=== PATIENT | female | born 1965 | race Caucasian/White ===

== ENCOUNTER 2022-06-01 18:35 | Emergency (ER) | payer OTHER, SELFPAY ==
--- NOTE | ~2022-06-01 | XR_ITS ---
EXAM: XR abdomen obstructive series DATE: 06/01/2022 19:25 HISTORY: constipation ,vomiting lower abdominal cramping . COMPARISON: None available. FINDINGS: Left basilar scar/atelectasis. Cholecystectomy clips. Normal bowel gas pattern. No organom egaly. Pelvic phleboliths. Degenerative changes in the spine. IMPRESSION: No radiographic evidence of obstruction or ileus. Reviewed, dictated and finalized at location K.
[2022-06-01 18:48] VITALS: BP 134/70; PULSE 92; RESP 18; TEMP 37.2; O2SAT 97
[2022-06-01] MEDS: ONDANSETRON HCL ODT 4 MG TABLET 8 MG SUBLINGUAL (19:15)
--- NOTE | 2022-06-01 20:03 | ED.NAVMDI ---
HPI - Nausea/Vomiting/Diarrhea General Chief complaint: Nausea/Vomiting/Diarrhea Stated complaint: Nausea,Vomiting,Constipation Time Seen by Provider: 06/01/22 18:56 Source: patient and family Mode of arrival: ambulatory Limitations: no limitations History of Present Illness HPI Narrative: Patient presents today complaining of nausea, vomiting, constipation, lower abdominal cramping. Symptoms began yesterday afternoon. Reports 5 episodes of vomiting today, but none since 1500 this afternoon. Reports nausea worsens when she sits up and improves when she lays flat. Denies fever or any URI symptoms. Denies urinary symptoms. She has been trying MiraLax last night and magnesium citrate today. States she vomited after taking the magnesium citrate. She did have a small bowel movement consisting of hard round stools after the magnesium citrate. Her last normal bowel movement was 2 days ago. Related Data Allergies Allergy/AdvReac Type Severity Reaction Status Date / Time rimantadine AdvReac Severe hallucinati Verified 06/01/22 18:54 ons gluten AdvReac Intermediate HEART BURN Verified 06/01/22 18:54 oseltamivir AdvReac Intermediate AX Verified 06/01/22 18:54 ANTIVIRALS RIMANTADINE HCL (Generic AdvReac Intermediate Y Uncoded 06/01/22 18:54 Allergy) Review of Systems Review of Systems: CONSTITUTIONAL: Denies body aches, fever, chills, or sweats. EYES: Denies visual changes, redness, or discharge. ENT: Denies rhinorrhea, congestion, sore throat, or otalgia. CARDIOVASCULAR: Denies chest pain, palpitations, or edema. RESPIRATORY: Denies cough or dyspnea. GASTROINTESTINAL:+ nausea, vomiting, abdominal cramping, constipation GENITOURINARY: Denies dysuria or hematuria. SKIN: Denies rash, itching, or wounds. MUSCULOSKELETAL: Denies back pain, joint pain, or myalgia. NEUROLOGIC: Denies headache, numbness, tingling, or weakness. PSYCH: Denies depression or anxiety. [facility] Family History Family History Father Family history of lymphoma Grandparent Family history of malignant neoplasm of breast in first degree relative Social History Social History Smoking status: Never smoker Alcohol intake: current Comments At time of signature, I have reviewed and agree with nursing past medical, surgical, social and family history unless otherwise noted. Please see nursing chart for further information. There is no relevant family history pertinent to the presenting complaint Exam Narrative: GENERAL: Mildly ill-appearing, well-nourished. HEAD: Normocephalic, atraumatic. EYES: EOMI. No redness or drainage. Conjunctivae normal. ENT: Mucous membranes pink and tacky. Nares clear. No rhinorrhea. TMs normal bilaterally. Throat normal. Uvula midline. NECK: Normal AROM. Supple. No lymphadenopathy. CHEST: No respiratory distress. Clear to auscultation. HEART: Regular rate and rhythm. No murmur appreciated. Normal peripheral pulses. ABDOMEN: Soft, nondistended, normal active bowel sounds. +Lower abdominal tenderness without rebound or guarding. MUSCULOSKELETAL: No bony tenderness. EXTREMITIES: Normal range of motion. No edema. SKIN: Warm, dry, no rash. Capillary refill normal. Normal skin turgor. NEURO: No focal deficits. Alert and oriented x3. Gait steady. Course Course Emergency Course: Patient has been drinking water since her arrival. X-ray negative for obstruction. Patient has been treated with Zofran for nausea. Offered transfer to the ER for further evaluation. Patient declined. Will discharge her home with prescription for Zofran for nausea and Bentyl for abdominal cramping. Understands to go to the ER if symptoms worsen. Level of Care: Express Care Visit Vital Signs Vital signs: Vital Signs Temperature 98.9 F 06/01/22 18:48 Pulse Rate 92 06/01/22 18:48 Respiratory Rate 18 11
== END 2022-06-01 20:16 | disposition home or self-care (01) ==
PROVIDERS: Emergency Provider Nurse Practitioner; PCP Emergency Medicine
DX: R11.2 Nausea with vomiting, unspecified (principal)
CPT/HCPCS: 74019; 99213; A9270; G0463

== ENCOUNTER 2023-10-06 09:05 | Emergency (ER) | payer OTHER, SELFPAY ==
--- NOTE | ~2023-10-06 | XR_ITS ---
EXAMINATION: XR ankle RT min 3V DATE: 10/06/2023 09:32 INDICATION: Lateral right ankle pain and swelling post twisting injury TECHNIQUE: Anteroposterior, oblique, mortise, and lateral views of the right ankle were obtained. COMPARISON: None. FINDINGS: Alignment is normal. No acute fracture. Heterotopic ossicles along the tip of the medial malleolus li jesus sequela of chronic medial ankle sprain. Mild osteoarthritis at the first metatarsophalangeal ade nt. The remaining profiled joint spaces appear relatively preserved. Moderate-sized plantar calcaneal spur. Prominent soft tissue swelling at the anterior and lateral ankle. No joint effusion. IMPRESSION: 1. Soft tissue swelling but without ankle joint effusion or acute osseous abnormality. Reviewed, dictated and finalized at location B. IMPRESSION: 1. Soft tissue swelling but without ankle joint effusion or acute osseous abnor mality.
[2023-10-06 09:16] VITALS: BP 127/88; PULSE 74; RESP 16; TEMP 36.9; O2SAT 99
--- NOTE | 2023-10-06 09:16 | ED.LOWEXIN ---
HPI - Extremity Injury (Lower) General Chief Complaint: Extremity Injury, Lower Stated Complaint: Right Ankle Injury Time Seen by Provider: 10/06/23 09:06 Source: patient Mode of arrival: ambulatory Limitations: no limitations History of Present Illness HPI Narrative: Terra is a 57-year-old female patient presenting to the clinic today with complaints of right ankle pain/injury. She reports she tripped and rolled her ankle yesterday over a flatbed tailgate. She is walking with a cane today. Complaining of numbness and pain to the lateral left ankle with mild swelling Related Data Allergies Allergy/AdvReac Type Severity Reaction Status Date / Time rimantadine AdvReac Severe hallucinati Verified 01/17/23 08:35 ons gluten AdvReac Intermediate HEART BURN Verified 01/17/23 08:35 oseltamivir AdvReac Intermediate AX Verified 01/17/23 08:35 ANTIVIRALS RIMANTADINE HCL (Generic AdvReac Intermediate Y Uncoded 01/17/23 08:35 Allergy) Review of Systems Review of Systems: Pertinent positives per HPI. Patient denies any fever, chills, rash, headache, visual changes, dizziness, cough, runny nose, sore throat, shortness of breath, chest pain, palpitations, nausea, vomiting, diarrhea, constipation, abdominal pain, or any urinary issues. PMF Family History Family History Father Family history of lymphoma Grandparent Family history of malignant neoplasm of breast in first degree relative Social History Social History Smoking status: Never smoker Alcohol intake: current Lack of Transportation: No Lack of Food: Never True Current Housing: I Have Housing Concerned About Future Housing: No Difficulty Paying Gas/Electric Bills: No Difficulty Paying for Meds: No Currently Unemployed: No Education: Master's Degree or Higher Difficulty w/ Childcare or Family Care: No Comments At the time of my signature, I reviewed and agree with the nursing past medical, surgical, social, and family history. There is no relevant family history pertinent to the patient complaint. Exam Narrative: General: Well-developed, well nourished, in no apparent distress Head: Normocephalic, atraumatic. Cardio: Regular rate and rhythm, s1 and s2 normal, no murmur appreciated. Resp: Clear to auscultation bilaterally, no rhonchi, rales, wheezing or rubs. Musculoskeletal: No deformity, mild swelling to the left lateral ankle, tender to palpation over the lateral ankle, grossly normal range of motion, discomfort with valgus/varus testing, normal dorsal flexion and plantar flexion against resistance, muscle strength strong and equal, peripheral pulse strong, no edema, no cyanosis, normal gait and station Course Course Emergency Course: Portions of this record may have been created with voice recognition software. Level of Care: Express Care Visit Vital Signs Vital signs: Vital signs reviewed MDM - Extremity Injury (Lower) MDM Narrative Medical decision making narrative: At the time of visit patient is resting comfortably on the exam table. Patient appears to be nontoxic. Diagnostics: X-rays negative for any sign of fracture or malalignment. Plan: I suspect patient has a left ankle sprain. David wrap was applied. supportive measures were discussed with the patient and they voiced understanding discharge instructions and agrees to treatment plan. Return precautions reviewed Differential Diagnosis Differential diagnosis: Likely ankle sprain and strain and ankle fracture Discharge Plan Discharge Clinical Impression: Left ankle sprain Qualifiers: Encounter type: initial encounter Involved ligament of ankle: calcaneofibular ligament Qualified Code(s): S93.412A - Sprain of calcaneofibular ligament of left ankle, initial encounter Patient Disposition: Home, Self-Care Condition: Stable Instruc
== END 2023-10-06 09:53 | disposition home or self-care (01) ==
PROVIDERS: Emergency Provider Nurse Practitioner Family; PCP Emergency Medicine
DX: S93.402A Sprain of unspecified ligament of left ankle, initial encounter (principal); W18.49XA Other slipping, tripping and stumbling without falling, initial encounter; E78.00 Pure hypercholesterolemia, unspecified
CPT/HCPCS: 73610; 99213; G0463

== ENCOUNTER 2023-12-26 14:07 | Outpatient (CLI) | payer OTHER, SELFPAY ==
--- NOTE | ~2023-12-26 | US_ITS ---
EXAMINATION: US thyroid DATE: 12/26/2023 14:44 INDICATION: Other specified disorders of thyroid. TECHNIQUE: Multiple ultrasound images of the thyroid were obtained. COMPARISON: None. FINDINGS: The right thyroid lobe measures 4.2 x 1.5 x 1.5 cm. The left thyroid lobe measures 3.9 x 1.0 x 1.4 c m. In the left thyroid lobe, there is a 6 mm solid, hypoechoic, wider than tall nodule with smooth m argins without echogenic foci (TI-RADS TR4). IMPRESSION: 1. Small thyroid nodule, likely not clinically significant. No follow-up is needed. Reviewed, dictated and finalized at location A. IMPRESSION: 1. Small thyroid nodule, likely not clinically significant. No follow-up is nee ded.
== END 2023-12-26 14:08 ==
LOC: MICIMG 14:09
PROVIDERS: PCP Emergency Medicine; Visit Provider Emergency Medicine
DX: E07.89 Other specified disorders of thyroid (principal)
CPT/HCPCS: 76536

== ENCOUNTER 2024-01-20 14:33 | Outpatient (CLI) | payer OTHER, SELFPAY ==
--- NOTE | ~2024-01-20 | MM_ITS ---
EXAMINATION: MM screening alejandro BI w jose HISTORY: Screening mammogram TECHNIQUE: Craniocaudal and mediolateral oblique 3-D tomosynthesis images were obtained and synthetic 2-D images were generated. CAD analysis was submitted and interpreted. COMPARISON: 03/22/2015 BREAST PARENCHYMAL COMPOSITION:Not Dense. There are scattered areas of fibroglandular density. FINDINGS: Stable intramammary lymph nodes the upper, outer left breast. No suspicious mass, calcifica tion, or architectural distortion are identified in either breast to suggest malignancy. There has be en no suspicious interval change. IMPRESSION: No mammographic evidence of malignancy. Recommend routine screening mammography in one year. BI-RADS Category 2: Benign finding(s). Reviewed, dictated and finalized at location .
== END 2024-01-20 14:34 | disposition home or self-care (01) ==
PROVIDERS: PCP Emergency Medicine; Visit Provider Emergency Medicine
DX: Z12.31 Encounter for screening mammogram for malignant neoplasm of breast (principal)
CPT/HCPCS: 77063; 77067

== ENCOUNTER 2024-02-26 10:36 | Outpatient (CLI) | payer OTHER, SELFPAY ==
--- NOTE | ~2024-02-26 | XR_ITS ---
XR knee LT min 4V Ordering provider: Primo Clements MD History: . M17.0 - Bilateral primary osteoarthritis of knee . Comparison: August 02, 2015 FINDINGS: BONES: No acute fracture or dislocation. JOINT SPACES: Normal. SOFT TISSUES: Normal. IMPRESSION: No acute osseous abnormality left knee. Reviewed, dictated and finalized at location A.
--- NOTE | ~2024-02-26 | US_ITS ---
EXAMINATION: US venous doppler [facility] DATE: 02/26/2024 11:34 INDICATION: Lower limb pain. TECHNIQUE: Grayscale ultrasound images without and with compression and Doppler ultrasound images of the bilateral lower extremity veins were obtained. COMPARISON: None. FINDINGS: The visualized portions of right common femoral vein, profunda (deep) femoral vein, femoral vein, pop liteal vein, peroneal veins, posterior tibial veins, and greater saphenous vein outflow are patent. The visualized portions of left common femoral vein, profunda femoral vein, femoral vein, popliteal v ein, peroneal veins, posterior tibial veins, and greater saphenous vein outflow are patent. IMPRESSION: 1. No deep venous thrombosis. Reviewed, dictated and finalized at location A.
--- NOTE | ~2024-02-26 | XR_ITS ---
XR knee RT min 4V Ordering provider: Primo Clements MD History: . M17.0 - Bilateral primary osteoarthritis of knee . Comparison: November 12, 2010 FINDINGS: BONES: No acute fracture or dislocation. JOINT SPACES: Normal. SOFT TISSUES: Normal. IMPRESSION: No acute osseous abnormality right knee. Reviewed, dictated and finalized at location A.
== END 2024-02-26 10:37 ==
PROVIDERS: PCP Emergency Medicine; Visit Provider Emergency Medicine
DX: M17.0 Bilateral primary osteoarthritis of knee (principal); M79.606 Pain in leg, unspecified; Z83.2 Family history of diseases of the blood and blood-forming organs and certain disorders involving the immune mechanism
CPT/HCPCS: 73564; 93970

== ENCOUNTER 2024-07-06 19:00 | Emergency (ER) | payer OTHER, SELFPAY ==
--- NOTE | ~2024-07-06 | XR_ITS ---
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 RESULT: Lines, tubes, and devices: Cholecystectomy clips. Lungs and pleura: Ill-defined somewhat lobular appearing opacity in the right upper lung. Cardiomediastinal silhouette: Unremarkable. Calcified left inferior hilar granuloma or node. Other: No acute osseous or upper abdominal finding. IMPRESSION: Ill-defined right upper lung opacity, may represent a focus of infection. Recommend radiographic foll ow-up to ensure resolution. Reviewed, dictated and finalized at location K. OGEN BRAZE FURNACE OPERATOR IMPRESSION: Ill-defined right upper lung opacity, may represent a focus of infection. Recom mend radiographic follow-up to ensure resolution.
[2024-07-06 19:11] VITALS: BP 142/84; PULSE 90; RESP 16; TEMP 36.7; O2SAT 100
--- NOTE | 2024-07-06 19:35 | ED.URI ---
HPI - URI/Sore Throat General Chief Complaint: Upper Respiratory Infection Stated Complaint: COUGH/SOB Time Seen by Provider: 07/06/24 19:25 Source: patient, family, RN notes reviewed and old records reviewed Mode of arrival: ambulatory Limitations: no limitations History of Present Illness HPI Narrative: 58 year old female accompanied by spouse presents to express care with complaints of hacking cough, sinus congestion and drainage and also some shortness of breath with cough and exertion at times for one week duration. Patient reports that she has taken some OTC cold and cough medications and has used her husbands Symbicort inhaler a few times but symptoms have not resolved. Patient reports that she has ot been able to sleep due to cough being so bad and has missed work due to her symptoms. Patient reports that she has not had any known fevers. MD elicited complaint: cough, rhinorrhea, nasal congestion and other (shortness of breath) Onset (ago): week(s) (1) Severity: moderate Able to tolerate fluids by mouth: Yes Treatments prior to arrival: cold medicine and other (used 's Symbicort inhaler) Related Data Home Medications ?Medication ?Instructions ?Recorded ?Confirmed ?Last Taken ?Type calcium 260 mg (phos,tribasic)-D3 tablet PO 12/25/23 02/26/24 Unknown History 25 mcg-herbal 50 mg chewable tablet (Alive Calcium-Vitamin D3) melatonin 10 mg capsule 10 mg PO QHS 12/25/23 02/26/24 Unknown History Allergies Allergy/AdvReac Type Severity Reaction Status Date / Time rimantadine AdvReac Severe hallucinati Verified 02/26/24 09:01 ons gluten AdvReac Intermediate HEART BURN Verified 02/26/24 09:01 oseltamivir AdvReac Intermediate AX Verified 02/26/24 09:01 ANTIVIRALS RIMANTADINE HCL (Generic AdvReac Intermediate Y Uncoded 02/26/24 09:01 Allergy) Review of Systems Review of Systems: CONSTITUTIONAL: Reports malaise, no chills, sweats, or fever. EYES: Denies visual changes, redness, or discharge. ENT: Reports rhinorrhea, congestion, sinus pain, no otalgia and no sore throat. CARDIOVASCULAR: Denies chest pain, palpitations, or edema. RESPIRATORY: Reports cough.? Denies present dyspnea,hacking cough GASTROINTESTINAL: Denies abdominal pain, nausea, vomiting, diarrhea SKIN: Denies rash or itching. MUSCULOSKELETAL: Denies myalgia. NEUROLOGIC: Denies headache. All systems reviewed & are unremarkable except as noted in HPI and below PMFSH Past Medical History Medical History (Updated 07/10/24 @ 10:21 by Mariella Mcmullen NP) Celiac disease Hyperlipidemia Surgical History Surgical History (Updated 07/06/24 @ 20:52 by Mariella Mcmullen NP) History of tonsillectomy Hx of cholecystectomy Family History Family History Father Family history of lymphoma Grandparent Family history of malignant neoplasm of breast in first degree relative Social History Social History Smoking status: Never smoker Alcohol intake: current Lack of Transportation: No Lack of Food: Never True Current Housing: I Have Housing Concerned About Future Housing: No Difficulty Paying Gas/Electric Bills: No Difficulty Paying for Meds: No Currently Unemployed: No Education: Master's Degree or Higher Difficulty w/ Childcare or Family Care: No Comments At time of signature, agree with nursing past medical, surgical, social and family history. There is no relevant family history pertinent to the presenting complaint Exam Narrative: GENERAL: ill-appearing, well-nourished, and in no acute distress. HEAD: Normocephalic EYES: PERRLA, conjunctivae clear ENT: Nares clear, turbinates edematous and erythematous, clear discharge. Mucous membranes moist. TM pearly kelly with dull light reflex bilaterally; no tragal tenderness. Oropharynx erythematous without lesions. Tonsils not enlarged and without exudate, no drooling, no hoarseness, no trismus, uvula midline. NECK: Supple. No lymphadenopathy CHEST: rhonchi right upper lung, breath sounds equal. No wheezing, positive for rhonchi, rales, or stridor. No respiratory distress, speaks in full sentences, acute coughSAO2 100% on room air HEART: Regular rate and rhythm. No murmur heard. SKIN: Warm, dry, no rash. NEURO: Alert and oriented x3. PSYCH: Normal mood and affect Course Course Emergency Course: Patient is aware of diagnosis, understands and agrees to treatment plan.? Anticipatory guidance given.? Patient agrees to follow-up as directed and is aware of reasons to seek care at the emergency department. Portions of this record may have been created with voice recognition software Level of Care: Express Care Visit Vital Signs Vital signs: Vital Signs Temperature 36.7 C 07/06/24 19:11 Pulse Rate 90 07/06/24 19:11 Respiratory Rate 16 07/06/24 19:11 Blood Pressure 142/84 H 07/06/24 19:11 Pulse Oximetry 100 07/06/24 19:11 Temperature 36.7 C 07/06/24 19:11 Pulse Rate 90 07/06/24 19:11 Respiratory Rate 16 07/06/24 19:11 Blood Pressure 142/84 H 07/06/24 19:11 Pulse Oximetry 100 07/06/24 19:11 Oxygen Delivery Room Air 07/06/24 19:15 Reviewed MDM - URI/Sore Throat MDM Narrative Medical decision making narrative: Differential diagnosis considered: Arcos virus, strep pharyngitis, allergic rhinitis, upper respiratory tract infection, sinusitis, rhinosinusitis, nasopharyngitis. viral pharyngitis, otitis media, otitis externa, pneumonia, bronchitis, viral cough syndrome, viral syndrome, and influenza.? Exam findings show no acute concerns or changes; patient is non-toxic appearing and is in no distress.? Patient is appropriate for outpatient treatment and follow-up. Differential Diagnosis Differential diagnosis: Likely upper respiratory infection, sinusitis, viral infection and other (acute cough, pneumonia) Medical Records Attestation: I reviewed the patient's medical records. Lab Data Attestation: I reviewed the patient's lab results. Imaging Data Attestation: I personally reviewed and interpreted this imaging study as follows: My impression: right upper lob opacity Radiologist's impression: [facility] [address] [facility] [place][Note 2] [place] [address] XRay Report Signed Patient: Terra Neely : 1965 MR#: [id number] Age: 58 Acct:[id number] Loc: [id number] ADM Date: 07/06/24Attending Dr: Ordering Physician: Mariella Mcmullen APRN Date of Service: 07/06/24 Procedure(s): XR chest 2V Accession Number(s): [id number] cc: Primo Clements MD; Mariella Mcmullen APRN~ EXAMINATION: XR chest 2V Exam Date/Time: 07/06/2024 19:31 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 RESULT: Lines, tubes, and devices: Cholecystectomy clips. Lungs and pleura: Ill-defined somewhat lobular appearing opacity in the right upper lung. Cardiomediastinal silhouette: Unremarkable. Calcified left inferior hilar granuloma or node. Other: No acute osseous or upper abdominal finding. IMPRESSION: Ill-defined right upper lung opacity, may represent a focus of infection. Recommend radiographic follow-up to ensure resolution. Reviewed, dictated and finalized at location K. E GATE ASSEMBLER Dictated By: Simone Garber MD 07/06/242012 Signed By: <Electronically signed by Simone Garber MD in OV> Critical Care Time Critical Care Time Critical Care Time: No Discharge Plan Discharge Clinical Impression: Acute cough Right upper lobe pneumonia Qualifiers: Pneumonia type: due to unspecified organism Qualified Code(s): J18.9 - Pneumonia, unspecified organism Patient Disposition: Home, Self-Care Condition: Stable Instructions: Antibiotic Form, Pneumonia (ED) Additional Instructions: Increase fluids especially juices and water [id number] cough and cold medicine of your choice for your symptoms Prescription cough medicine as directed--caution drowsiness and no driving or alcohol Continue your inhaler/nebulizer as directed Steroids as directed--take with food heat to the face 20-30 minutes 4-6 times a day for pain Salt water gargles, throat lozenges or throat sprays as desired Antibiotic as directed--finished the medication Tylenol or ibuprofen for any fever pain Zyrtec Claritin or Ritika daily for sinus congestion and drainage If your symptoms persist, change or worsen significantly before you can contact your personal physician then please, without delay, go to the emergency department for further evaluation. Follow-up with PCP in 7-10 days or sooner if needed Follow up with PCP soon in regards to your blood pressure which is elevated above threshold for referral. Blood pressure above 120/80 may indicate pre-hypertension. 142/84 Patient Language: Kiswahili Prescriptions: New azithromycin 500 mg tablet 500 mg PO DAILY 5 Days Qty: 5 0RF albuterol sulfate 90 mcg/actuation HFA aerosol inhaler 2 puff inhalation QID PRN (Reason: shortness of breath or wheezing) Qty: 6.7 0RF prednisone 20 mg tablet 20 mg PO BID Qty: 10 0RF Rx Instructions: start in the am codeine-guaifenesin 10-100 mg/5 mL liquid 10 ml PO Q6H PRN (Reason: cold symptoms) Qty: 120 0RF No Action Alive Calcium-Vitamin D3 260 mg calcium- 25 mcg-50 mg tablet,chewable PO melatonin 10 mg capsule 10 mg PO QHS rosuvastatin 5 mg tablet See Rx Instructions .ROUTE .COMPLEX Qty: 45 3RF Dose Instruction: TAKE 1 TABLET EVERY OTHER DAY Rx Instructions: TAKE 1 TABLET EVERY OTHER DAY Follow-up/Referrals: Primo Clements MD [Primary Care Provider] - Time of Disposition: 20:38 Quality Tenmile Coma Scale Eyes: Open Verbal: Oriented and Alert Motor: Follows Commands George Coma Total Score: 15
== END 2024-07-06 20:40 | disposition home or self-care (01) ==
PROVIDERS: Emergency Provider Registered Nurse; PCP Emergency Medicine
DX: R05.1 Acute cough (principal); J18.9 Pneumonia, unspecified organism; K90.0 Celiac disease; E78.5 Hyperlipidemia, unspecified
CPT/HCPCS: 71046; 99213; G0463

== ENCOUNTER 2025-01-05 13:12 | Emergency (ER) | payer OTHER, SELFPAY ==
[2025-01-05 13:15] VITALS: BP 153/85; PULSE 69; RESP 20; TEMP 36.3; O2SAT 100
--- NOTE | 2025-01-05 14:30 | ED_ITS ---
HPI - General Adult General Chief complaint: Recheck/Abnormal Lab/Rx <AXEL Torres Last Filed: 01/05/25 14:42> Stated complaint: TICK BITE ILLNESS <AXEL Torres Last Filed: 01/05/25 14:42> Time Seen by Provider: 01/05/25 14:30 <AXEL Torres Last Filed: 01/05/25 14:42> Focused HPI: Patient is a 59 y/o female who presents to the ED with c/o dizziness, tick exposure. Patient reports she was on vacation camping in [place] last week. Was bit by a lone star tick on her L hip 1 week ago. removed it, but unsure if he got all of the tick out. Became having some swelling/redness around tick bite, aching in her L hip and knees. Sent her PCP a photo of the tania, was told to go to an UC. Went to an UC on Friday and was Rx'd Doxycycline and given shot of Ceftriaxone 1gm. States sx's improved yesterday, but woke up this morning with worsening redness and pain of L hip, neck pain, lightheadedness, general malaise, nausea. Denies fevers. Denies vomiting. GENERAL: Well-appearing, well-nourished, and in no acute distress. HEAD: Normocephalic, atraumatic. CHEST: Clear to auscultation. ?No respiratory distress. HEART: Regular rate and rhythm.? SKIN: Scabbed lesion to L anterior proximal thigh with bruising surrounding. Very slight erythema. No significant warmth. No bulls-eye rash. No drainage. No significant focal TTP. NEURO: ?Alert and oriented x3. Patient screened in triage and initial orders placed.? ?Additional care and disposition to be based upon?diagnostic testing and treatment. <AXEL Torres Last Filed: 01/05/25 14:42> Source: patient <AXEL Torres Last Filed: 01/05/25 14:42> Mode of arrival: ambulatory <AXEL Torres Last Filed: 01/05/25 14:42> Limitations: no limitations <Jaci Diego PA-C - Last Filed: 01/05/25 14:42> History of Present Illness HPI narrative: Agree with the HPI above <Benny Luis MD - Last Filed: 01/05/25 16:50> Related Data Home medications: Home Medications ?Medication ?Instructions ?Recorded ?Confirmed ?Last Taken ?Type calcium 260 mg (phos,tribasic)-D3 tablet PO 12/25/23 11/05/24 Unknown History 25 mcg-herbal 50 mg chewable tablet (Alive Calcium-Vitamin D3) melatonin 10 mg capsule 10 mg PO QHS 12/25/23 11/05/24 Unknown History <Jaci Diego PA-C - Last Filed: 01/05/25 14:42> Allergies/adverse reactions: Allergies Allergy/AdvReac Type Severity Reaction Status Date / Time rimantadine AdvReac Severe hallucinati Verified 01/05/25 13:20 ons gluten AdvReac Intermediate HEART BURN Verified 01/05/25 13:20 oseltamivir AdvReac Intermediate AX Verified 01/05/25 13:20 ANTIVIRALS RIMANTADINE HCL (Generic AdvReac Intermediate Y Uncoded 01/05/25 13:20 Allergy) <Jaci Diego PA-C - Last Filed: 01/05/25 14:42> Review of Systems 2 Review of Systems: As reviewed above in HPI <Benny Luis MD - Last Filed: 01/05/25 16:50> [facility] Past Medical History Medical History: Medical History (Updated 01/05/25 @ 16:49 by Benny Luis MD) Family history of hypothyroidism Family history of factor V Leiden mutation Tear of meniscus of left knee Lower extremity pain Screening for breast cancer Obesity Pure hypercholesterolemia Celiac disease Hyperlipidemia <Jaci Diego PA-C - Last Filed: 01/05/25 14:42> Surgical History Surgical History: Surgical History History of tonsillectomy Hx of cholecystectomy <Jaci Diego PA-C - Last Filed: 01/05/25 14:42> Family History Family History: Family History Father Family history of lymphoma Grandparent Family history of malignant neoplasm of breast in first degree relative <Jaci Diego PA-C - Last Filed: 01/05/25 14:42> Social History Social History: Social History Smoking status: Never smoker Alcohol intake: current Lack of Transportation: No Lack of Food: Never True Current Housing: I Have Housing Concerned About Future Housing: No Difficulty Paying Gas/Electric Bills: No Difficulty Paying for Meds: No Currently Unemployed: No Education: Master's Degree or Higher Difficulty w/ Childcare or Family Care: No <AXEL Torres Last Filed: 01/05/25 14:42> Exam 2 Narrative: GENERAL: Well-appearing, well-nourished, and in no acute distress. HEAD: Normocephalic, atraumatic. CHEST: Clear to auscultation. ?No respiratory distress. HEART: Regular rate and rhythm.? SKIN: Scabbed lesion to L anterior proximal thigh with bruising surrounding. Very slight erythema. No significant warmth. No bulls-eye rash. No drainage. No significant focal TTP. NEURO: ?Alert and oriented x3. <Benny Luis MD - Last Filed: 01/05/25 16:50> Course Vital Signs Vital signs: Vital Signs Temperature 36.3 C L 01/05/25 13:15 Pulse Rate 69 01/05/25 13:15 Respiratory Rate 20 01/05/25 13:15 Blood Pressure 153/85 H 01/05/25 13:15 Pulse Oximetry 100 01/05/25 13:15 Oxygen Delivery Room Air 01/05/25 13:15 Temperature 36.3 C L 01/05/25 13:15 Pulse Rate 75 01/05/25 15:47 Respiratory Rate 16 01/05/25 15:48 Blood Pressure 142/81 H 01/05/25 15:47 Pulse Oximetry 100 01/05/25 15:48 Oxygen Delivery Room Air 01/05/25 13:15 <AXEL Torres Last Filed: 01/05/25 14:42> Vital Signs Temperature 36.3 C L 01/05/25 13:15 Pulse Rate 69 01/05/25 13:15 Respiratory Rate 20 01/05/25 13:15 Blood Pressure 153/85 H 01/05/25 13:15 Pulse Oximetry 100 01/05/25 13:15 Oxygen Delivery Room Air 01/05/25 13:15 Temperature 36.3 C L 01/05/25 13:15 Pulse Rate 75 01/05/25 15:47 Respiratory Rate 16 01/05/25 15:48 Blood Pressure 142/81 H 01/05/25 15:47 Pulse Oximetry 100 01/05/25 15:48 Oxygen Delivery Room Air 01/05/25 13:15 <Benny Luis MD - Last Filed: 01/05/25 16:50> Medical Decision Making MDM Narrative Medical decision making narrative: MSE by JASON in triage. <Jaci Diego PA-C - Last Filed: 01/05/25 14:42> MSE by JASON in triage. 59-year-old female presenting after tick bite to her left anterior hip. She was started on doxycycline has completed 1 day of this. She reported feeling dizzy as well as nauseous and her primary doctor was not able to see her today so she was referred to the emergency department. She has an appointment tomorrow morning for follow-up. Patient states that she was given intramuscular Rocephin at urgent care while she was out of town traveling back. She was started on doxycycline for 14 days and want to make sure she does not have any other complications. She otherwise well-appearing, target lesion that was previously seen and photographed is resolved she just has a scabbed over lesion presently. No fever, hypoxia. Normal vital signs otherwise. Unremarkable examination. Patient does have current prescription for doxycycline for 2 weeks which is appropriate level of care for this type of potential exposure. Discussed this with her but we will obtain laboratory studies an EKG to make sure there is no other complications or findings that need to be attended to. Workup was unrevealing. No leukocytosis or anemia. Normal platelet count. Normal electrolytes. Normal renal and hepatic function panel. EKG unremarkable. No signs of QTC interval prolongation, normal NC interval. No ectopy. No ST segment changes. Patient is safe for discharge with current course of treatment including remaining 2 weeks of doxycycline and she was given return precautions and follow-up instructions. She has a PCP appointment tomorrow. <Benny Luis MD - Last Filed: 01/05/25 16:50> Medical Records Medical records reviewed: Yes I reviewed the external patient's medical records. <Benny Luis MD - Last Filed: 01/05/25 16:50> Vital Signs Vital Signs: Vital Signs Temperature 36.3 C L 01/05/25 13:15 Pulse Rate 69 01/05/25 13:15 Respiratory Rate 20 01/05/25 13:15 Blood Pressure 153/85 H 01/05/25 13:15 Pulse Oximetry 100 01/05/25 13:15 Oxygen Delivery Room Air 01/05/25 13:15 Temperature 36.3 C L 01/05/25 13:15 Pulse Rate 75 01/05/25 15:47 Respiratory Rate 16 01/05/25 15:48 Blood Pressure 142/81 H 01/05/25 15:47 Pulse Oximetry 100 01/05/25 15:48 Oxygen Delivery Room Air 01/05/25 13:15 <Jaci Diego PA-C - Last Filed: 01/05/25 14:42> Vital Signs Temperature 36.3 C L 01/05/25 13:15 Pulse Rate 69 01/05/25 13:15 Respiratory Rate 20 01/05/25 13:15 Blood Pressure 153/85 H 01/05/25 13:15 Pulse Oximetry 100 01/05/25 13:15 Oxygen Delivery Room Air 01/05/25 13:15 Temperature 36.3 C L 01/05/25 13:15 Pulse Rate 75 01/05/25 15:47 Respiratory Rate 16 01/05/25 15:48 Blood Pressure 142/81 H 01/05/25 15:47 Pulse Oximetry 01/05/25 15:48 Oxygen Delivery Room Air 01/05/25 13:15 <Benny Luis MD - Last Filed: 01/05/25 16:50> Lab Data Lab results reviewed: Yes I reviewed the patient's lab results. <Benny Luis MD - Last Filed: 01/05/25 16:50> Result diagrams: 01/05/25 14:43 01/05/25 14:43 <Jaci Diego PA-C - Last Filed: 01/05/25 14:42> Labs: Lab Results 01/05/25 Range/Units 14:43 WBC 6.2 (4.5-10.0) K/mm3 RBC 4.63 (4.2-5.4) M/mm3 Hgb 13.6 (12.0-15.0) g/dL Hct 41.3 (37.0-47.0) % MCV 89.2 (80-100) fl MCH 29.4 (26-34) pg MCHC 32.9 (32-36) g/dl RDW 12.3 (11.5-14.5) % Plt Count 302 (150-375) k/mm3 MPV 8.7 (7.4-10.4) fl Immature Gran % (Auto) 0.3 (0-0.5) % Neut % (Auto) 61.2 (45.5-73.1) % Lymph % (Auto) 29.5 (18.3-44.2) % [place] % (Auto) 5.3 (2.6-8.5) % Eos % (Auto) 3.2 (0-4.4) % Baso % (Auto) 0.5 (0.2-1.2) % Lymph # (Auto) 1.83 (0.9-3.2) K/mm3 [place] # (Auto) 0.3 (0.1-0.6) K/mm3 Eos # (Auto) 0.2 (0-0.3) K/mm3 Baso # (Auto) 0.0 (0.0-0.1) K/mm3 Abs Immat Gran (auto) 0.02 (0.00-0.031) K/mm3 Absolute Neuts (auto) 3.8 (1.3-6.7) K/mm3 Absolute Nucleated RBC 0.000 (0.0-0.012) K/mm3 Nucleated RBC % 0.0 (0.0-0.2) % Sodium 140 (137-145) mmol/L Potassium 4.0 (3.4-5.0) mmol/L Chloride 103 (98-107) mmol/L Carbon Dioxide 28 (22-30) mmol/L Anion Gap 9 (4-12) mmol/L BUN 16 (7-17) mg/dL Creatinine 0.86 (0.7-1.0) mg/dL Estim Creat Clear Calc 72 ml/min Estimated GFR > 60 (59 - ) Glucose 99 (65-110) mg/dL Calcium 9.9 (8.4-10.2) mg/dL Total Bilirubin 0.6 (0.2-1.3) mg/dL AST 35 (14-36) U/L ALT 26 (6-35) U/L Alkaline Phosphatase 92 (38-126) U/L Total Protein 8.3 H (6.3-8.2) g/dL Albumin 4.8 (3.5-5.1) g/dL <Jaci Diego PA-C - Last Filed: 01/05/25 14:42> Lab Results 01/05/25 Range/Units 14:43 WBC 6.2 (4.5-10.0) K/mm3 RBC 4.63 (4.2-5.4) M/mm3 Hgb 13.6 (12.0-15.0) g/dL Hct 41.3 (37.0-47.0) % MCV 89.2 (80-100) fl MCH 29.4 (26-34) pg MCHC 32.9 (32-36) g/dl RDW 12.3 (11.5-14.5) % Plt Count 302 (150-375) k/mm3 MPV 8.7 (7.4-10.4) fl Immature Gran % (Auto) 0.3 (0-0.5) % Neut % (Auto) 61.2 (45.5-73.1) % Lymph % (Auto) 29.5 (18.3-44.2) % Wilbarger % (Auto) 5.3 (2.6-8.5) % Eos % (Auto) 3.2 (0-4.4) % Baso % (Auto) 0.5 (0.2-1.2) % Lymph # (Auto) 1.83 (0.9-3.2) K/mm3 [place]ger # (Auto) 0.3 (0.1-0.6) K/mm3 Eos # (Auto) 0.2 (0-0.3) K/mm3 Baso # (Auto) 0.0 (0.0-0.1) K/mm3 Abs Immat Gran (auto) 0.02 (0.00-0.031) K/mm3 Absolute Neuts (auto) 3.8 (1.3-6.7) K/mm3 Absolute Nucleated RBC 0.000 (0.0-0.012) K/mm3 Nucleated RBC % 0.0 (0.0-0.2) % Sodium 140 (137-145) mmol/L Potassium 4.0 (3.4-5.0) mmol/L Chloride 103 (98-107) mmol/L Carbon Dioxide 28 (22-30) mmol/L Anion Gap 9 (4-12) mmol/L BUN 16 (7-17) mg/dL Creatinine 0.86 (0.7-1.0) mg/dL Estim Creat Clear Calc 72 ml/min Estimated GFR > 60 (59 - ) Glucose 99 (65-110) mg/dL Calcium 9.9 (8.4-10.2) mg/dL Total Bilirubin 0.6 (0.2-1.3) mg/dL AST 35 (14-36) U/L ALT 26 (6-35) U/L Alkaline Phosphatase 92 (38-126) U/L Total Protein 8.3 H (6.3-8.2) g/dL Albumin 4.8 (3.5-5.1) g/dL <Benny Luis MD - Last Filed: 01/05/25 16:50> Discharge Plan Discharge Clinical Impression: Tick bite, At high risk for tick borne illness <Jaci Diego PA-C - Last Filed: 01/05/25 14:42> Patient Disposition: Home <Jaci Diego PA-C - Last Filed: 01/05/25 14:42> Condition: Stable <Jaci Diego PA-C - Last Filed: 01/05/25 14:42> Instructions: Antibiotic Form, Tick Bite (ED) <Jaci Diego PA-C - Last Filed: 01/05/25 14:42> Additional Instructions: Your laboratory studies and EKG are reassuring. You need to complete the entire 2 weeks of doxycycline based on your tick exposure and symptoms. Follow- up with regular primary care provider. Return with any emergent concerns. <Jaci Diego PA-C - Last Filed: 01/05/25 14:42> Patient Language: Upper Sorbian <Jaci Diego PA-C - Last Filed: 01/05/25 14:42> Prescriptions: New ondansetron 4 mg tablet,disintegrating 4 mg PO Q8H PRN (Reason: nausea and vomiting) Qty: 10 0RF No Action Alive Calcium-Vitamin D3 260 mg calcium- 25 mcg-50 mg tablet,chewable PO melatonin 10 mg capsule 10 mg PO QHS rosuvastatin 5 mg tablet See Rx Instructions .ROUTE .COMPLEX Qty: 45 3RF Dose Instruction: TAKE 1 TABLET EVERY OTHER DAY Rx Instructions: TAKE 1 TABLET EVERY OTHER DAY <Jaci Diego PA-C - Last Filed: 01/05/25 14:42> Follow-up/Referrals: Jany Oscar APRN [Primary Care Provider] - <Jaci Diego PA-C - Last Filed: 01/05/25 14:42> Time of Disposition: 16:50 <Jaci Diego PA-C - Last Filed: 01/05/25 14:42> 16:50 <Benny Luis MD - Last Filed: 01/05/25 16:50>
--- NOTE | 2025-01-05 14:35 | ECG_ITS ---
Test Date: 2025-01-05 14:39:34 Measurements Intervals [place] Rate: 67 P: 3 WI: 140 QRS: 7 QRSD: 92 T: 8 QT: 411 QTc: 434 Interpretive Statements SINUS RHYTHM CONSIDER INFERIOR INFARCT, AGE INDETERMINATE ABNORMAL ECG No previous ECG available for comparison Electronically Signed On 01-05-2025 15:20:20 CDT by Eugene Cr D.O.
[2025-01-05] MEDS: ONDANSETRON HCL ODT 4 MG TABLET PO (14:49)
[2025-01-05 14:52] LABS: Basophils Percent Auto 0.5 % (0.2-1.2); Eosinophils Absolute Auto 0.2 K/mm3 (0-0.3); Eosinophils Percent Auto 3.2 % (0-4.4); Hematocrit 41.3 % (37.0-47.0); Hemoglobin 13.6 g/dL (12.0-15.0); Immature Granulocyte Absolute 0.02 K/mm3 (0.00-0.031); Immature Granulocyte Percent A 0.3 % (0-0.5); Lymphocytes Absolute Auto 1.83 K/mm3 (0.9-3.2); Lymphocytes Percent Auto 29.5 % (18.3-44.2); Mean Corpuscular HGB Conc 32.9 g/dl (32-36); Mean Corpuscular Hemoglobin 29.4 pg (26-34); Mean Corpuscular Volume 89.2 fl (80-100); Mean Platelet Volume 8.7 fl (7.4-10.4); Monocytes Absolute Auto 0.3 K/mm3 (0.1-0.6); Monocytes Percent Auto 5.3 % (2.6-8.5); Neutrophils Absolute Auto 3.8 K/mm3 (1.3-6.7); Neutrophils Percent Auto 61.2 % (45.5-73.1); Platelet Count Result 302 k/mm3 (150-375); Red Blood Count 4.63 M/mm3 (4.2-5.4); Red Cell Distribution Width 12.3 % (11.5-14.5); White Blood Count 6.2 K/mm3 (4.5-10.0)
[2025-01-05 15:17] LABS: Alanine Aminotransferase 26 U/L (6-35); Albumin Level 4.8 g/dL (3.5-5.1); Alkaline Phosphatase 92 U/L (38-126); Anion Gap 9 mmol/L (4-12); Aspartate Amino Transferase 35 U/L (14-36); Bilirubin,Total 0.6 mg/dL (0.2-1.3); Blood Urea Nitrogen 16 mg/dL (7-17); Calcium 9.9 mg/dL (8.4-10.2); Carbon Dioxide 28 mmol/L (22-30); Chloride 103 mmol/L (98-107); Estimated CRCL calculation 72 ml/min; Estimated Glomerular Filt Rate > 60; Glucose 99 mg/dL (65-110); Sodium 140 mmol/L (137-145); Total Protein 8.3 g/dL (6.3-8.2)
--- OUTSIDE RECORDS SUMMARY | 2025-01-05 15:23 | XMS_ITS | Clinical Summary ---
Author Organization [facility] [employer] Address [address] [place] [address] Care Team Providers Care Varnish Thinner Name Role Phone Unavailable Primary Care Provider Unavailabl e Source Comments [facility] [employer],non-owned Affiliates and Associated Physician Practices is amultiple site organization consisting of ambulatory clinics and hospital sitesin [place], [place], [place] and [place]. This disclosure is being madepursuant to the Care Everywhere program and may not contain all information available regarding this patient. 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 Gender Identity Not on file Sexual Orientation Not on file Plan of Treatment Health Maintenance Due Date Last Done Comments COLOGUARD (AGES 45-75) - COL ON CA SCREENING 1965 COLON MONITORING 1965 COLONOSCOPY - COLON CA SCREENING 1965 CT COLONOGRAPHY - COLON CA SCREENING 1965 Colorectal Cancer Screening 1965 FIT - COLON CA SCREENING 1965 FLEX SIG - COLON CA SCREENING 1965 LIPID TESTING 1965 MAMMOGRAM 1965 HIV SCREENING 1980 HEPATITIS C SCREENING 12/10/1983 DTAP/TDAP/TD VACCINES (1 - Tdap) 1984 HEPATITIS B VACCINE (1 of 3 - 19+ 3-dose series) 1984 PNEUMOCOCCAL VACCINE 50+ (1 of 1 - PCV) 12/15/2015 ZOSTER VACCINE (1 of 2) 12/15/2015 COVID-19 VACCINE (2023-2 5 season) 2024 DEPRESSION SCREENING 07/28/2024 INFLUENZA VACCINE (Season Ended) 2025 HIB VACCINE Aged Out No longer eligi ble based on patient's age to complete this topic HPV VACCINE Aged Out No longer eligi ble based on patient's age to complete this topic MENINGOCOCCAL (Group B) VACC INE SHARED DECISION-MAKING Aged Out No longer eligibl e based on patient's age to complete this topic MENINGOCOCCAL GROUPS A/C/Y/W VACCINE Aged Out No longer eligible b ased on patient's age to complete this topic
--- OUTSIDE RECORDS SUMMARY | 2025-01-05 15:23 | XMS_ITS | Continuity of Care Document ---
Author Organization [facility] Address [address] [place] [address] Phone Care Team Providers Care English Professor Name Role Phone Hickey OD, River Unavailable Unavailable Advance Directives Directive Yes / No Effective Date File Name No Information Encounters Encounter Description Practice Location Reason(s) For Visit Diagnoses Date Provider Providers Copied on Encounter [facility], [id number] [place] [address] [address], [place], [place], [id number], [place] tel:[phone] [facility] ([facility]) No Information [address] Hickey OD River. [address] , [address], [place], [address], [place]. tel:[phone] Family History Family Member Type Diagnosis Age At Onset No Information Payers Payer name Insurance type Covered libertarian ID Authoriza tion(s) No Information Social History Type Description Quantity Date Captured Comments Sex Female Smoking Status No Information Chief Complaint And Reason For Visit No Information Reason For Referral Reason For Referral No Information History Of Present Illness Encounter Date Complaint History Of Prese nt Illness No Information Functional Status Date Functional Assessmen t No Information Instructions Date Instruction Additional Infor mation No Information Assessments Type Assessment Date No Information Patient Care Teams Name Effective Dates (start - stop) Status Members No Information
[2025-01-05 15:42] VITALS: BP 147/78; PULSE 67
[2025-01-05 15:44] VITALS: BP 141/72; PULSE 73
[2025-01-05 15:47] VITALS: BP 142/81; PULSE 75
[2025-01-05 15:48] VITALS: RESP 16; O2SAT 100
--- OUTSIDE RECORDS SUMMARY | 2025-01-05 17:16 | XMS_ITS | Clinical Summary ---
Author Organization [facility] [employer] Address [address] [place] [address] Care Team Providers Care Analytics Intern Name Role Phone Unavailable Primary Care Provider Unavailabl e Source Comments [facility] [employer],non-owned Affiliates and Associated Physician Practices is amultiple site organization consisting of ambulatory clinics and hospital sitesin [place], [place], [place] and [place]. This disclosure is being madepursuant to the Care Everywhere program and may not contain all information available regarding this patient. 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
--- OUTSIDE RECORDS SUMMARY | 2025-01-05 17:16 | XMS_ITS | Continuity of Care Document ---
Author Organization [facility] Address [address] [place] [address] Phone Care Team Providers Care Vice President Education Name Role Phone Hickey OD, River Unavailable Unavailable Advance Directives Directive Yes / No Effective Date File Name No Information Encounters Encounter Description Practice Location Reason(s) For Visit Diagnoses Date Provider Providers Copied on Encounter [facility], [id number] [place] [address] [address], [place], [place], [id number], [place] tel:[phone] [facility] No Information [address] Hickey OD [place]. [address] , [address], [place], [address], [place]. tel:[phone] Family History Family Member Type Diagnosis Age At Onset No Information Payers Payer name Insurance type Covered alliance party ID Authoriza tion(s) No Information Social History [...]
== END 2025-01-05 16:56 | disposition home or self-care (01) ==
PROVIDERS: Physician Assistant; Emergency Provider Student in an Organized Health Care Education/Training Program; PCP Nurse Practitioner Family
DX: S70.262A Insect bite (nonvenomous), left hip, initial encounter (principal); E78.5 Hyperlipidemia, unspecified; W57.XXXA Bitten or stung by nonvenomous insect and other nonvenomous arthropods, initial encounter
CPT/HCPCS: 36415; 80053; 85025; 93005; 99283; A9270